=== PATIENT | male | born 1950 | race Caucasian/White ===

== ENCOUNTER 2019-12-30 21:44 | Inpatient (IN) | payer MEDICARE, OTHER ==
[~2019-12-30] VITALS: Ht 172.7 cm; Wt 89.6 kg
[~2019-12-30 21:44] MED LIST: ATOR10TA84 PO; GABA-529 PO; LEVE500T53 PO; LISI-661 PO; PHEN-649 PO; PHEN100C23 PO; PHEN50 PO
[2019-12-30] MEDS ORDERED: LevETIRAcetam 1,000 MG in DEXTROSE 5%-WATER 100 ML IV ONE (22:15)
[2019-12-30 22:44] LABS: HEMOGLOBIN 14.3 g/dL (13.5-17.5); MONOCYTES # (AUTO) 0.4 K/uL (0.1-1.0); MONOCYTES % (AUTO) 5.5 % (2.0-9.0); RED BLOOD CELL COUNT(AUTO) 4.62 MIL/uL (4.50-5.90)
[2019-12-30 22:50] LABS: BASOPHILS % (AUTO) 0.3 % (0.0-2.0); EOSINOPHILS % (AUTO) 0.7 % (1.0-6.0); HEMATOCRIT 42.7 % (41-53); LYMPHOCYTES % (AUTO) 12.3 % (22.0-44.0); MEAN CORPUSCULAR HGB CONC 33.5 G/dL (31.0-37.0); MEAN CORPUSCULAR VOLUME 93 fL (80-100); NEUTROPHILS # (AUTO) 6.6 K/uL (1.8-7.7); NEUTROPHILS % (AUTO) 81.2 % (40.0-70.0); PLATELET COUNT (AUTO) 214 K/uL (150-450); RED CELL DISTRIBUTION WIDTH 14.2 % (11.5-14.5)
[2019-12-30 22:54] LABS: ANION GAP 8 mmol/L (8-16); CALCIUM, TOTAL 9.6 mg/dL (8.8-10.5); CARBON DIOXIDE 28 mmol/L (22-29); CHLORIDE 101 mmol/L (98-107); CREATININE 1.01 mg/dL (0.60-1.30); GLOMERULAR FILTR. RATE CALC > 60 mL/min (>60); GLUCOSE,RANDOM 113 mg/dL (70-110); POTASSIUM 3.9 mmol/L (3.5-5.1); SODIUM SERUM 137 mmol/L (136-145); UREA NITROGEN, BLOOD 13 mg/dL (7-18)
[2019-12-30 22:59] LABS: ALANINE AMINOTRANSFERASE 19 U/L (12-78); ALBUMIN 4.1 g/dL (3.4-5.0); ALKALINE PHOSPHATASE 101 U/L (46-116); ASPARTATE AMINOTRANSFERASE 14 U/L (15-37); BILIRUBIN,TOTAL 0.2 mg/dL (0.1-1.0); PHENYTOIN (DILANTIN) 0.9 mcg/mL (10.0-20.0); TOTAL PROTEIN, SERUM 8.2 g/dL (6.4-8.2)
[2019-12-31] MEDS ORDERED: ACETAMINOPHEN 500 MG TABLET PO ONE (02:30)
[2019-12-31 02:43] LABS: APPEARANCE,URINE CLEAR (CLEAR); BILIRUBIN,URINE NEGATIVE (NEGATIVE); GLUCOSE, URINE (UA) NEGATIVE (NEGATIVE); KETONES,URINE NEGATIVE (NEGATIVE); LEUKOCYTE ESTERASE ,URINE NEGATIVE (NEGATIVE); NITRATE,URINE NEGATIVE (NEGATIVE); OCCULT BLOOD,URINE NEGATIVE (NEGATIVE); PROTEIN,URINE NEGATIVE (NEGATIVE); UROBILINOGEN,URINE 0.2 mg/dL (<=1.0)
[2019-12-31] MEDS ORDERED: ONDANSETRON HCL 4 MG/2 ML VIAL IVP PRN (03:30)
[2019-12-31] MEDS ORDERED: 0.9% SODIUM CHLORIDE 10 ML SYRINGE IVP PRN (03:30)
[2019-12-31] MEDS ORDERED: ACETAMINOPHEN 325 MG TABLET PO PRN ×2 (03:30→08:00)
[2019-12-31 04:30] VITALS: BP 126/62
[2019-12-31 07:44] VITALS: BP 148/75
[2019-12-31] MEDS ORDERED: LORazepam 2 MG/ML VIAL IVP PRN (08:30)
[2019-12-31] MEDS: DOCUSATE SODIUM 100 MG CAPSULE PO SCH ×2 (08:36→21:20)
[2019-12-31] MEDS: FAMOTIDINE 20 MG TABLET PO SCH (08:36)
[2019-12-31] MEDS: HEPARIN SODIUM,PORCINE 5,000 UNITS/ML VIAL SQ SCH ×2 (08:37→14:59)
[2019-12-31] MEDS ORDERED: SODIUM CHLORIDE 0.9% 250 ML IV ONE (08:40)
[2019-12-31] MEDS: LevETIRAcetam 1,000 MG in DEXTROSE 5%-WATER 100 ML IV SCH ×2 (09:19→21:19)
[2019-12-31 11:16] VITALS: BP 124/65
[2019-12-31 15:24] VITALS: BP 139/76
[2019-12-31 20:03] VITALS: BP 134/76
[2019-12-31 23:00] VITALS: BP 136/74
[2020-01-01] MEDS: HEPARIN SODIUM,PORCINE 5,000 UNITS/ML VIAL SQ SCH ×3 (00:32→15:56)
[2020-01-01 04:00] VITALS: BP 133/78
[2020-01-01 08:21] VITALS: BP 127/77
[2020-01-01 08:35] LABS: BASOPHILS % (AUTO) 0.7 % (0.0-2.0); EOSINOPHILS % (AUTO) 2.1 % (1.0-6.0); HEMATOCRIT 41.4 % (41-53); HEMOGLOBIN 14.3 g/dL (13.5-17.5); LYMPHOCYTES % (AUTO) 14.1 % (22.0-44.0); MEAN CORPUSCULAR HEMOGLOBIN 31.7 pg (26.0-34.0); MEAN CORPUSCULAR HGB CONC 34.5 G/dL (31.0-37.0); MEAN CORPUSCULAR VOLUME 92 fL (80-100); MONOCYTES # (AUTO) 0.5 K/uL (0.1-1.0); MONOCYTES % (AUTO) 6.8 % (2.0-9.0); NEUTROPHILS # (AUTO) 5.4 K/uL (1.8-7.7); NEUTROPHILS % (AUTO) 76.3 % (40.0-70.0); PLATELET COUNT (AUTO) 235 K/uL (150-450); RED BLOOD CELL COUNT(AUTO) 4.51 MIL/uL (4.50-5.90); RED CELL DISTRIBUTION WIDTH 13.7 % (11.5-14.5)
[2020-01-01] MEDS: FAMOTIDINE 20 MG TABLET PO SCH (08:37)
[2020-01-01] MEDS: LevETIRAcetam 1,000 MG in DEXTROSE 5%-WATER 100 ML IV SCH ×2 (08:37→21:41)
[2020-01-01] MEDS: DOCUSATE SODIUM 100 MG CAPSULE PO SCH ×2 (08:37→21:41)
[2020-01-01 08:51] LABS: ALANINE AMINOTRANSFERASE 18 U/L (12-78); ALBUMIN 3.7 g/dL (3.4-5.0); ALKALINE PHOSPHATASE 104 U/L (46-116); ANION GAP 8 mmol/L (8-16); ASPARTATE AMINOTRANSFERASE 18 U/L (15-37); BILIRUBIN,TOTAL 0.5 mg/dL (0.1-1.0); CALCIUM, TOTAL 9.3 mg/dL (8.8-10.5); CARBON DIOXIDE 27 mmol/L (22-29); CHLORIDE 103 mmol/L (98-107); CREATININE 0.78 mg/dL (0.60-1.30); GLOMERULAR FILTR. RATE CALC > 60 mL/min (>60); GLUCOSE,RANDOM 80 mg/dL (70-110); POTASSIUM 3.6 mmol/L (3.5-5.1); SODIUM SERUM 138 mmol/L (136-145); TOTAL PROTEIN, SERUM 7.7 g/dL (6.4-8.2); UREA NITROGEN, BLOOD 10 mg/dL (7-18)
[2020-01-01 11:31] VITALS: BP 138/72
[2020-01-01 15:17] VITALS: BP 140/76
[2020-01-01 19:35] VITALS: BP 141/76
[2020-01-01 23:43] VITALS: BP 152/79
[2020-01-02] MEDS: HEPARIN SODIUM,PORCINE 5,000 UNITS/ML VIAL SQ SCH ×2 (01:10→08:27)
[2020-01-02 04:40] VITALS: BP 148/78
[2020-01-02 08:17] VITALS: BP 136/78
[2020-01-02] MEDS: FAMOTIDINE 20 MG TABLET PO SCH (08:27)
[2020-01-02] MEDS: LevETIRAcetam 1,000 MG in DEXTROSE 5%-WATER 100 ML IV SCH (08:27)
[2020-01-02] MEDS: DOCUSATE SODIUM 100 MG CAPSULE PO SCH (08:27)
[2020-01-02] MEDS ORDERED: LevETIRAcetam 500 MG TABLET PO SCH (09:00)
[2020-01-02] MEDS ORDERED: ASPIRIN 81 MG CHEWABLE TABLET PO SCH (11:00)
[2020-01-02 11:26] VITALS: BP 150/81
[2020-01-02 15:00] VITALS: BP 136/83
== END 2020-01-02 15:30 | DRG 101 ==
LOC: EMS 21:44 → 6N 12-31 03:07
PROVIDERS: ADMIT Internal Medicine; ATTEND Internal Medicine
DX: G40.909 Epilepsy, unspecified, not intractable, without status epilepticus (principal); E66.9 Obesity, unspecified; R62.7 Adult failure to thrive; Z68.30 Body mass index [BMI] 30.0-30.9, adult; I10 Essential (primary) hypertension; R29.810 Facial weakness; M25.561 Pain in right knee; R53.81 Other malaise; Z91.19 Patient's noncompliance with other medical treatment and regimen
CPT/HCPCS: 70450; 97116; 97162; 97530; G0482; J0712; J1644; J7050; J7060